=== PATIENT | female | born 1955 | race Caucasian/White ===

== ENCOUNTER → 2016-11-05 | Day surgery (SDC) | payer OTHER ==
[~2016-11-05] MED LIST: BUPIVACAINE 0.5% 30 ML SDV ONE; HEPARIN 10,000 UNIT/10 ML MDV ONE; ISOPROTERENOL HCL 0.2 MG/ML 5ML AMP ONE; LIDOCAINE 1% 30 ML SDV ONE; MIDAZOLAM 2 MG/2 ML VIAL ONE; NS 1,000 ML IV ONE; PROPOFOL 200 MG/20 ML VIAL ONE; PROPOFOL/EMULSION 500 MG/50 ML BOTTLE IV ONE; SUGAMMADEX SODIUM 200 MG/2 ML VIAL IVP ONE; [UNRECOGNIZED DRUG - OTHER] IV ONE; fentaNYL 100 MCG/2 ML INJ ONE
--- NOTE | 2016-11-05 07:35 | CPEKG ---
Heart Rate: 64 RR Interval: 938 P-R Interval: 164 QRSD Interval: 76 QT Interval: 404 QTC Interval: 417 P [place]: 45 QRS [place]: -10 T Wave [place]: 54 EKG Severity - NORMAL ECG - EKG Impression: SINUS RHYTHM Electronically Signed By: Daryl Mckinnon 05-Nov-2016 17:05:48
[2016-11-05 07:48] LABS: % IMMATURE GRANULYOCYTES 0.2 % (0.0-1.1); ABSOLUTE IMMATURE GRANULOCYTES 0.01 10^3/uL (0.00-0.10); ADD DIFF? NO; ADD MORPH? NO; ADD SCAN? NO; ATYPICAL LYMPHOCYTE FLAG 10 (0-99); FRAGMENT RBC FLAG 0 (0-99); HEMATOCRIT 42.4 % (38.0-47.0); HEMOGLOBIN 14.4 g/dL (12.6-16.3); LEFT SHIFT FLG 0 (0-99); LIPEMIA HEMOLYSIS FLAG 90 (0-99); MEAN CELL HEMOGLOBIN 30.1 pg (27.9-34.1); MEAN CELL VOLUME 88.5 fL (81.5-99.8); MEAN PLATELET VOLUME 10.1 fL (8.7-11.7); PLATELET CLUMPS FLAG 0 (0-99); PLATELET COUNT 216 10^3/uL (150-400); RED BLOOD CELL COUNT 4.79 10^6/uL (4.18-5.33); RED CELL DISTRIBUTION WIDTH 13.2 % (11.5-15.2)
[2016-11-05 07:58] LABS: INR 0.97 (0.83-1.16); PROTIME(PATIENT) 12.8 SEC (12.0-15.0)
[2016-11-05 07:59] LABS: APTT 23.5 SEC (23.0-38.0)
[2016-11-05 08:08] LABS: ANION GAP 10 mEq/L (8-16); CARBON DIOXIDE 27 mEq/l (22-31); CHLORIDE 106 mEq/L (97-110); CREATININE 0.7 mg/dL (0.6-1.0); GLOMERULAR FILTRATION RATE > 60; GLUCOSE 90 mg/dL (70-100); POTASSIUM 4.2 mEq/L (3.5-5.2); SODIUM 143 mEq/L (134-144)
--- NOTE | 2016-11-05 12:50 | CPEKG ---
Heart Rate: 61 RR Interval: 984 P-R Interval: 152 QRSD Interval: 80 QT Interval: 432 QTC Interval: 435 P [place]: 69 QRS [place]: -3 T Wave [place]: 63 EKG Severity - OTHERWISE NORMAL ECG - EKG Impression: SINUS RHYTHM EKG Impression: LOW VOLTAGE IN FRONTAL LEADS Electronically Signed By: Daryl Mckinnon 05-Nov-2016 17:05:44
--- NOTE | 2016-11-06 15:19 | EPPROC ---
Electrophysiology Procedure Note: ELECTROPHYSIOLOGIC STUDY AND CATHETER MEDIATED ABLATION OF SLOW/FAST AV GENA REENTRY TACHYCARDIA PROCEDURES PERFORMED: 01725-83 EP evaluation with RA/RV/LA pace/record, with arrhythmia induction 19075-03 EP evaluation with RA/RV pace record, insert/reposition catheter, with arrhythmia induction [id number] Intracardiac catheter ablation, SVT arrhythmogenic focus 93042 3D mapping Fluoroscopy INDICATION: This is a 61 yr old with palpitation who went to ER and had termination with vagal maneuvers. It was deemed to be SVT and hence it was decided to perform EP study with possibility of ablation for SVT. PROCEDURE: Catheters & Anesthesia: The patient arrived in the Electrophysiology Laboratory in the fasting state. The right clavicular region, right groin, and left groin area were prepped and draped in the usual sterile manner. Anesthesiologist administered general anesthesia. Appropriate non-invasive blood pressure, pulse oximetry and end- tidal CO2 monitoring was established. All catheters were placed percutaneously using the modified Seldinger technique , and advanced into position under fluoroscopic guidance. One CRD2 catheter was advanced to the His-bundle position via the right femoral vein. . One #7 Austrian deflectable catheter with 10 pairs of electrodes was placed via the right femoral vein into the coronary sinus. Programmed stimulation was performed from the right atrium, right ventricle and coronary sinus (left atrium). Parahisian pacing demonstrated constant H-A interval with changing V-A intervals and stimulus-A intervals during capture and loss of capture of proximal RBB proving retrograde conduction over AV node. No SVT was induced with or without the use of Isuprel upto 4mcg/min. Atrial burst pacing, atrial extrastimuli, Ventricular burst pacing, ventricular extrastimuli protocol with or without Isuprel did not induce SVT. No jump was noted. AF was easily induced and had to be CV several times. Ibutilide did not succeed in keeping in SR and AF was easily induced with pacing. Since no SVT was induced and AF was easily induced though there is no history of clinical AF, it was decided to hold off on ablation The catheters were removed. The patient was transferred to the cardiovascular holding area in stable condition. Vascular access sheaths were removed in the holding area. There were no apparent complications. Results: SCL 890ms AVWB 400/390 CONCLUSIONS * No SVT inducible with or without Isuprel with all maneuvers * Easily inducible AF from which she had to be cardioverted * No complications.
== END | disposition home or self-care (01) ==
LOC: FCATH 06:56 → F2W 11:22 → UNDOADMOB 11:22
PROVIDERS: ATTEND Internal Medicine Cardiovascular Disease
PROC: 4A023FZ Measurement of Cardiac Rhythm, Percutaneous Approach (ICD-10-PCS; principal; 2016-11-05)
PROC: 02H73MZ Insertion of Cardiac Lead into Left Atrium, Percutaneous Approach (ICD-10-PCS; 2016-11-05)
PROC: 5A1213Z Performance of Cardiac Pacing, Intermittent (ICD-10-PCS; 2016-11-05)
DX: I47.1 Supraventricular tachycardia (principal); R00.2 Palpitations; F41.9 Anxiety disorder, unspecified; F32.9 Major depressive disorder, single episode, unspecified; I10 Essential (primary) hypertension; Z87.440 Personal history of urinary (tract) infections; Z87.891 Personal history of nicotine dependence
CPT/HCPCS: C1730; J1644; J1742; J2250; J2704; J3010